=== PATIENT | male | born 1995 | race Two or more races ===

== ENCOUNTER 2018-07-28 18:05 | Emergency (ER) | payer SELFPAY ==
[~2018-07-28] VITALS: Ht 160 cm; Wt 87.0 kg
[2018-07-28] MEDS ORDERED: TETANUS, DIPHTHERIA, PERTUSSIS VAC/PF 0.5ML (>7YR OLD) IM ONE (19:45)
[2018-07-28] MEDS ORDERED: BACITRACIN ZINC OINT UDPKT TOP ONE (19:45)
[2018-07-28] MEDS ORDERED: KETOROLAC 60MG/2ML VIAL IM ONE (20:30)
[2018-07-28 20:52] VITALS: BP 140/62
== END 2018-07-28 21:52 | disposition left against medical advice (07) ==
LOC: ER 18:05
DX: S51.851A Open bite of right forearm, initial encounter (principal); W54.0XXA Bitten by dog, initial encounter; Y93.89 Activity, other specified; Y92.89 Other specified places as the place of occurrence of the external cause; Y99.8 Other external cause status
CPT/HCPCS: 90471; 90715; 99283